=== PATIENT | male | born 1975 | race Two or more races ===

== ENCOUNTER 2018-12-24 16:21 | Emergency (ER) | payer SELFPAY ==
[~2018-12-24] VITALS: Ht 170.2 cm; Wt 79.4 kg
[2018-12-24 16:37] VITALS: BP 145/92
[2018-12-24] MEDS ORDERED: NEOMY/BACITR/POLYMYXIN OINT PACKET. TP ONE (17:00)
[2018-12-24] MEDS ORDERED: DIPHTH,PERTUSS(ACELL),TET TOX 0.5 ML DISP.SYRIN. VAX IM ONE (17:00)
[2018-12-24] MEDS ORDERED: IBUPROFEN 400 MG TABLET. PO ONE (17:00)
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
[2018-12-24] MEDS ORDERED: LIDOCAINE (700MG/PATCH) PATCH. TD ONE (17:30)
[2018-12-24] MEDS ORDERED: HYDROcodone/APAP 5/325MG 1 TAB TABLET PO ONE (17:30)
[2018-12-24] MEDS ORDERED: HYDR-3164 PO (19:10)
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
== END 2018-12-24 19:30 | disposition home or self-care (01) ==
LOC: ER 16:21
DX: S80.212A Abrasion, left knee, initial encounter (principal); S80.211A Abrasion, right knee, initial encounter; M54.5 Low back pain; M54.6 Pain in thoracic spine; V28.4XXA Motorcycle driver injured in noncollision transport accident in traffic accident, initial encounter; Y93.55 Activity, bike riding; Y92.410 Unspecified street and highway as the place of occurrence of the external cause; Y99.8 Other external cause status
CPT/HCPCS: 72072; 72100; 73562; 90471; 90715; 99284-25

== ENCOUNTER 2019-03-22 20:14 | Emergency (ER) | payer SELFPAY ==
[~2019-03-22] VITALS: Ht 172.7 cm; Wt 79.4 kg
[~2019-03-22 20:14] MED LIST: HYDR-3164 PO
[2019-03-22 20:20] VITALS: BP 134/84
[2019-03-22] MEDS ORDERED: NAPR-695 PO (20:32)
[2019-03-22] MEDS ORDERED: ORPH100T PO (20:32)
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
[2019-03-22] MEDS ORDERED: NEOM7.5D4 OP (20:57)
[2019-03-22] MEDS ORDERED: ORPHENADRINE CITRATE 60 MG/2 ML VIAL. IM ONE (21:00)
[2019-03-22] MEDS ORDERED: DEXAMETHASONE 4 MG TABLET PO ONE (21:15)
== END 2019-03-22 21:20 | disposition home or self-care (01) ==
LOC: ER 20:14
DX: M54.5 Low back pain (principal); H11.003 Unspecified pterygium of eye, bilateral
CPT/HCPCS: 96372; 99283; J2360; J8540